=== PATIENT | male | born 1945 | race Caucasian/White ===

== ENCOUNTER 2016-08-18 07:14 | Day surgery (SDC) | payer MEDICARE, BC ==
--- NOTE | ~2016-08-18 | EGD ---
EGD REPORT [facility] [address] [address] NAME: MARIBEL REYNA : [birth year] [place]US [place] [facility] [place] [id number] AGE: 70 ADM/REG DATE : 08/18/16 MR#: [id number] REPORT SERV DATE: 08/18/16 DICTATED BY: MARYLIN FERNÁNDEZ DATE: 08/18/16 REPORT STATUS : Draft TRANSCRIBED BY: [facility] DATE: 08/18/16 End[facility] Center Patient Name: Maribel Reyna Date of : 1945 Attending MD: MARYLIN FERNÁNDEZ MD Procedure Date No Time: 08/18/2016 Procedure: Colonoscopy Indications: Heme positive stool, Anemia Referring MD: ROSANA SERVIN Medicines: Monitored Anesthesia Care Complications: No immediate complications. Procedure: Pre-Anesthesia Assessment: - ASA Grade Assessment: IV - A patient with severe systemic disease that is a constant threat to life. After I obtained informed consent, the scope was passed under direct vision. Throughout the procedure, the patient's blood pressure, pulse, and oxygen saturations were monitored continuously. The CF [id number] was introduced through the anus and advanced to the cecum, identified by the ileocecal valve. The colonoscopy was performed with moderate difficulty due to significant looping, a tortuous colon and the patient's body habitus. Successful completion of the procedure was aided by applying abdominal pressure. The patient tolerated the procedure well. The quality of the bowel preparation was adequate. Findings: The digital rectal exam was normal. Pertinent negatives include no palpable rectal lesions. Multiple diverticula were found in the sigmoid colon and in the descending colon. A sessile polyp was found in the descending colon. The polyp was 6 mm in size. The polyp was removed with a cold biopsy forceps. Resection and retrieval were complete. Hemorrhoids were found during retroflexion and were mild. Impression: - Diverticulosis in the sigmoid colon and in the descending colon. - One 6 mm polyp in the descending colon. Resected and retrieved. - Hemorrhoids. Recommendation: - Patient has a contact number available for emergencies. The signs and symptoms of potential delayed EGD REPORT [address] [place]. [address] NAME: MARIBEL REYNA : [birth year] [place]US [place] [facility] [place] [id number] AGE: 70 ADM/REG DATE : 08/18/16 MR#: [id number] REPORT SERV DATE: 08/18/16 DICTATED BY: MARYLIN FERNÁNDEZ DATE: 08/18/16 REPORT STATUS : Draft TRANSCRIBED BY: [employer] DATE: 08/18/16 complications were discussed with the patient. Return to normal activities tomorrow. Written discharge instructions were provided to the patient. - Regular diet. - Continue present medications. - Await pathology results. - Repeat colonoscopy for surveillance based on pathology results. - Perform a small bowel follow through. Procedure Code(s): --- Professional --- 26093, Colonoscopy, flexible, proximal to splenic flexure; with biopsy, single or multiple Diagnosis Code(s): --- Professional --- K64.9, Unspecified hemorrhoids K57.30, Diverticulosis of large intestine without perforation or abscess without bleeding D12.4, Benign neoplasm of descending colon R19.5, Other fecal abnormalities D64.9, Anemia, unspecified CPT copyright 2013 [employer]. All rights reserved. The codes documented in this report are preliminary and upon fire pilot review may be revised to meet current compliance requirements. MARYLIN FERNÁNDEZ MD 08/18/2016 9:34 AM This report has been signed electronically. Number of Addenda: 0 Note Initiated On: 08/18/2016 8:50 AM Scope Withdrawal Time 0 hours 6 minutes 27 seconds [id number] [place] [id number]
[~2016-08-18 07:14] MED LIST: ASAB PO; AT25 PO; CLARIT10 PO; EMLA TOP; ILA60 PO; L40 PO; LOVAZA1 GM PO; MULTIPLE VIT PO; NITROQUICK0.3 MG SL; NITROSTAT0.4 MG SL; PEP20 PO; PHOSLO PO; PLAVIX; PLAVIX PO; RENAGEL800 PO; RENVELA800 MG PO; ROBITUSSI OR; SENSIPAR30 M1 PO; SODBICAR10 PO; T PO; ZANTAC 150 PO; ZETIA PO
[2016-08-18 07:43] LABS: BUN (BLOOD UREA NITROGEN) 31 MG/DL (6-23); CALCIUM, SERUM 9.2 MG/DL (8.5-10.4); CHLORIDE, SERUM 89 MMOL/L (96-112); CO2 (CARBON DIOXIDE) 32 MMOL/L (24-34); CREATININE 6.72 MG/DL (0.70-1.30); GFR AFRICAN AMERICAN 9 ML/MIN (>=60); GFR NON AFRICAN AMERICAN 8 ML/MIN (>=60); GLUCOSE, SERUM 122 MG/DL (60-99); POTASSIUM, SERUM 3.8 MMOL/L (3.5-5.3); SODIUM, SERUM 137 MMOL/L (135-148)
== END 2016-08-18 23:59 | disposition home or self-care (01) ==
LOC: DMU 07:14
PROVIDERS: Anesthesiology; Internal Medicine Gastroenterology
PROC: 0DBM8ZX Excision of Descending Colon, Via Natural or Artificial Opening Endoscopic, Diagnostic (ICD-10-PCS; principal; 2016-08-18 08:30)
DX: D12.4 Benign neoplasm of descending colon (principal); K64.9 Unspecified hemorrhoids; K57.30 Diverticulosis of large intestine without perforation or abscess without bleeding; D64.9 Anemia, unspecified; I12.0 Hypertensive chronic kidney disease with stage 5 chronic kidney disease or end stage renal disease; I25.10 Atherosclerotic heart disease of native coronary artery without angina pectoris; I73.9 Peripheral vascular disease, unspecified; G47.33 Obstructive sleep apnea (adult) (pediatric); N18.6 End stage renal disease; H91.90 Unspecified hearing loss, unspecified ear; Z88.8 Allergy status to other drugs, medicaments and biological substances; Z79.82 Long term (current) use of aspirin; Z79.899 Other long term (current) drug therapy; Z98.890 Other specified postprocedural states
CPT/HCPCS: 80048; 88305; J2370